=== PATIENT | female | born 1995 | race African-American/Black ===

== ENCOUNTER 2019-10-20 02:15 | Emergency (ER) | payer SELFPAY | END 2019-10-20 02:47 | disposition home or self-care (01) | LOC: ERS 02:15 | DX: H60.501 Unspecified acute noninfective otitis externa, right ear (principal); F17.210 Nicotine dependence, cigarettes, uncomplicated | CPT/HCPCS: 99282 ==

== ENCOUNTER 2020-08-24 17:55 | Emergency (ER) | payer OTHER, MEDICAID ==
[2020-08-24] MEDS ORDERED: HYDROcodone/Acetaminophen 10/325 mg Tablet ONE (18:21)
== END 2020-08-24 19:44 | disposition home or self-care (01) ==
LOC: ERS 17:55
DX: S09.90XA Unspecified injury of head, initial encounter (principal); S50.01XA Contusion of right elbow, initial encounter; S80.02XA Contusion of left knee, initial encounter; I10 Essential (primary) hypertension; V89.2XXA Person injured in unspecified motor-vehicle accident, traffic, initial encounter
CPT/HCPCS: 70450; 71045; 72125

== ENCOUNTER 2020-10-08 13:33 | Emergency (ER) | payer MEDICAID, SELFPAY ==
[2020-10-08] MEDS ORDERED: Ondansetron ODT 4 MG TAB ONE (14:14)
[2020-10-08] MEDS ORDERED: Acetaminophen 500 MG TAB ONE (14:14)
[2020-10-08] MEDS ORDERED: Ibuprofen 200 MG TAB ONE (14:46)
== END 2020-10-08 14:55 | disposition home or self-care (01) ==
LOC: ERS 13:33
DX: U07.1 COVID-19 (principal); I10 Essential (primary) hypertension
CPT/HCPCS: 99284; Q0162